=== PATIENT | female | born 1970 | race Hispanic/Latino ===

== ENCOUNTER 2020-03-15 02:38 | Emergency (ER) | payer SELFPAY ==
[2020-03-15] MEDS ORDERED: DIPHENHYDRAMINE 50 MG/ML VIAL ONE (03:22)
[2020-03-15] MEDS ORDERED: METHYLPREDNISOLONE 125 MG INJ ONE (03:22)
[2020-03-15] MEDS ORDERED: FAMOTIDINE 20 MG TAB ONE (03:23)
--- NOTE | 2020-03-15 04:23 | ER ---
Nurse's Notes [facility] Name: Leonila Velarde Age: 49 yrs Sex: Female : 1970 Arrival Date: 03/15/2020 Time: 02:43 Bed 4 Private MD: Diagnosis: Other and unspecified allergy Presentation: 03/15 02:58 Chief complaint: Patient states: i woke up with swelling in my left side of upper lip. mg2 feels like tingling and burning inside. Coronavirus screen: Client denies travel out of the [place] in the last 14 days. At this time, the client does not indicate any symptoms associated with coronavirus-19. Ebola Screen: No symptoms or risks identified at this time. Initial Sepsis Screen: Does the patient meet any 2 criteria? No. Patient's initial sepsis screen is negative. Does the patient have a suspected source of infection? No. Patient's initial sepsis screen is negative. Risk Assessment: Do you want to hurt yourself or someone else? Patient reports no desire to harm self or others. Onset of symptoms was March 15, 2020 at 01:30. 02:58 Method Of Arrival: Ambulatory mg2 02:58 Acuity: KYLER 4 mg2 Triage Assessment: 03:00 General: Appears in no apparent distress. comfortable, Behavior is calm, cooperative. mg2 Pain: Denies pain. EENT: No signs and/or symptoms were reported regarding the EENT system. Neuro: Level of Consciousness is awake, alert, obeys commands, Oriented to person, place, time, situation. Cardiovascular: No deficits noted. Respiratory: Airway is patent Respiratory effort is even, unlabored, Respiratory pattern is regular, symmetrical. GI: No signs and/or symptoms were reported involving the gastrointestinal system. : No signs and/or symptoms were reported regarding the genitourinary system. Derm: Skin is intact, is healthy with good turgor, Skin is pink, warm \T\ dry. normal. Derm: swelling noted in the left side of the upper lip. Musculoskeletal: Circulation, motion, and sensation intact. Capillary refill < 3 seconds. 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 - Social history:: Smoking status: Patient denies any tobacco usage or history of. Patient/guardian denies using alcohol, street drugs, IV drugs, Patient/guardian denies using The patient lives with family. - Family history:: not pertinent. Screenin:02 Abuse screen: Denies threats or abuse. Denies injuries from another. Nutritional mg2 screening: No deficits noted. Tuberculosis screening: No symptoms or risk factors identified. Fall Risk None identified. Assessment: 03:02 General: see triage note. mg2 04:13 Reassessment: Patient appears in no apparent distress at this time. Patient and/or mg2 family updated on plan of care and expected duration. Pain level reassessed. Patient is alert, oriented x 3, equal unlabored respirations, skin warm/dry/pink. 04:21 Reassessment: Patient states feeling better. Patient states symptoms have improved. mg2 Vital Signs: 02:58 BP 141 / 61; Pulse 103; Resp 18; Temp 98.6; Pulse Ox 100% on R/A; Weight 113.4 kg; mg2 Height 5 ft. 5 in. (165.10 cm); 04:21 BP 140 / 80; Pulse 98; Resp 18; Temp 98; Pulse Ox 100% on R/A; mg2 02:58 Body Mass Index 41.60 (113.40 kg, 165.10 cm) mg2 ED Course: 02:43 Patient arrived in ED. cl3 02:58 Willie Paulino, SUKI is Primary Nurse. mg2 02:59 Triage completed. mg2 03:02 Arm band placed on. mg2 03:03 Patient has correct armband on for positive identification. mg2 03:03 No provider procedures requiring assistance completed. mg2 03:05 Beltran Briones MD is Attending Physician. ma2 04:21 Patient did not have IV access during this emergency room visit. mg2 Administered Medications: 03:14 Drug: Pepcid 20 mg Route: PO; mg2 04:20 Follow up: Response: No adverse reaction; Marked relief of symptoms mg2 03:15 Drug: Benadryl 50 mg Route: IM; Site: left ventrogluteal; mg2 04:20 Follow up: Response: No adverse reaction; Marked relief of symptoms mg2 03:15 Drug: MethylPREDNISolone Sodium Succinate 125 mg Route: IM; Site: right ventrogluteal; mg2 04:20 Follow up: Response: No adverse reaction; Marked relief of symptoms mg2 Outcome: 04:13 Discharge ordered by . [email or web address] 04:21 Discharged to home ambulatory. mg2 04:21 Condition: stable 04:21 Discharge instructions given to patient, Instructed on discharge instructions, follow up and referral plans. medication usage, Demonstrated understanding of instructions, follow-up care, medications, Prescriptions given X 3. 04:21 Patient left the ED. mg2 Signatures: Beltran Briones MD MD ma2 Willie Paulino RN RN mg2 Marc Velasquez cl3 Corrections: (The following items were deleted from the chart) 03:02 02:58 Chief complaint: Patient states: i woke up with swelling in my left lip. feels mg2 like tingling and burning inside. mg2
--- NOTE | 2020-03-15 04:23 | EDPHYS ---
Physician Documentation [facility] Name: Leonila Velarde Age: 49 yrs Sex: Female : 1970 Arrival Date: 03/15/2020 Time: 02:43 Bed 4 Private MD: ED Physician Beltran Briones HPI: 03/15 03:17 This 49 yrs old Female presents to ER via Ambulatory with complaints of Lips ma2 Swelling. 03:17 The problem is located in the mouth. Onset: The symptoms/episode began/occurred ma2 gradually, 3 hour(s) ago. Associated signs and symptoms: Pertinent negatives: dysphagia, fever, nausea, swelling. Severity of symptoms: At their worst the symptoms were mild, in the emergency department the symptoms are unchanged. The patient has not experienced similar symptoms in the past. 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 - Social history:: Smoking status: Patient denies any tobacco usage or history of. Patient/guardian denies using alcohol, street drugs, IV drugs, Patient/guardian denies using The patient lives with family. - Family history:: not pertinent. ROS: 03:17 Constitutional: Negative for fever, chills, and weight loss, Eyes: Negative for injury, ma2 pain, redness, and discharge, ENT: Negative for injury, pain, and discharge, Neck: Negative for injury, pain, and swelling, Cardiovascular: Negative for chest pain, palpitations, and edema, Respiratory: Negative for shortness of breath, cough, wheezing, and pleuritic chest pain, Abdomen/GI: Negative for abdominal pain, nausea, diarrhea, and constipation, MS/Extremity: Negative for injury and deformity, Skin: Negative for injury, rash, and discoloration, Neuro: Negative for headache, weakness, numbness, tingling, and seizure, Psych: Negative for depression, anxiety, suicide ideation, homicidal ideation, and hallucinations, Allergy/Immunology: Negative for hives, rash, and allergies, Endocrine: Negative for neck swelling, polydipsia, polyuria, polyphagia, and marked weight changes. 03:17 ENT: Negative for injury, pain, and discharge. ma2 03:17 Constitutional: Negative for fever, chills, and weight loss. Exam: 03:17 Constitutional: This is a well developed, well nourished patient who is awake, alert, ma2 and in no acute distress. Head/Face: Normocephalic, atraumatic. Eyes: Pupils equal round and reactive to light, extra-ocular motions intact. Lids and lashes normal. Conjunctiva and sclera are non-icteric and not injected. Cornea within normal limits. Periorbital areas with no swelling, redness, or edema. ENT: Nares patent. No nasal discharge, no septal abnormalities noted. Tympanic membranes are normal and external auditory canals are clear. Oropharynx with no redness, swelling, or masses, exudates, or evidence of obstruction, uvula midline. Mucous membranes moist. Neck: Trachea midline, no thyromegaly or masses palpated, and no cervical lymphadenopathy. Supple, full range of motion without nuchal rigidity, or vertebral point tenderness. No Meningismus. Chest/axilla: Normal chest wall appearance and motion. Nontender with no deformity. No lesions are appreciated. Cardiovascular: Regular rate and rhythm with a normal S1 and S2. No gallops, murmurs, or rubs. Normal PMI, no JVD. No pulse deficits. Respiratory: Lungs have equal breath sounds bilaterally, clear to auscultation and percussion. No rales, rhonchi or wheezes noted. No increased work of breathing, no retractions or nasal flaring. Abdomen/GI: Soft, non-tender, with normal bowel sounds. No distension or tympany. No guarding or rebound. No evidence of tenderness throughout. Back: No spinal tenderness. No costovertebral tenderness. Full range of motion. MS/ Extremity: Pulses equal, no cyanosis. Neurovascular intact. Full, normal range of motion. Neuro: Awake and alert, GCS 15, oriented to person, place, time, and situation. Cranial nerves II-XII grossly intact. Motor strength 5/5 in all extremities. Sensory grossly intact. Cerebellar exam normal. Normal gait. 03:20 ENT: painless left upper lip swelling, mild, tongue and oropharynx are wnl, no edema ma2 or swelling, no abscess or fluctuence, no signs of cellulitis, no erythema, no stridor, , Nares patent. No nasal discharge, no septal abnormalities noted. Tympanic membranes are normal and external auditory canals are clear. Oropharynx with no redness, swelling, or masses, exudates, or evidence of obstruction, uvula midline. Mucous membranes moist. Vital Signs: 02:58 BP 141 / 61; Pulse 103; Resp 18; Temp 98.6; Pulse Ox 100% on R/A; Weight 113.4 kg; mg2 Height 5 ft. 5 in. (165.10 cm); 04:21 BP 140 / 80; Pulse 98; Resp 18; Temp 98; Pulse Ox 100% on R/A; mg2 02:58 Body Mass Index 41.60 (113.40 kg, 165.10 cm) mg2 MDM: 03:05 Patient medically screened. ma2 03:20 Differential diagnosis: dental caries, gingivitis, aphthous ulcers, allergic reaction. ma2 04:12 Data reviewed: vital signs, nurses notes. Counseling: I had a detailed discussion with ma2 the patient and/or guardian regarding: the historical points, exam findings, and any diagnostic results supporting the discharge/admit diagnosis, the presence of at least one elevated blood pressure reading (>120/80) during this emergency department visit, the need for outpatient follow up. Response to treatment: the patient's symptoms have markedly improved after treatment. ED course: swelling improved . Administered Medications: 03:14 Drug: Pepcid 20 mg Route: PO; mg2 04:20 Follow up: Response: No adverse reaction; Marked relief of symptoms mg2 03:15 Drug: Benadryl 50 mg Route: IM; Site: left ventrogluteal; mg2 04:20 Follow up: Response: No adverse reaction; Marked relief of symptoms mg2 03:15 Drug: MethylPREDNISolone Sodium Succinate 125 mg Route: IM; Site: right ventrogluteal; mg2 04:20 Follow up: Response: No adverse reaction; Marked relief of symptoms mg2 Disposition: 0220 04:13 Discharged to Home. Impression: Other and unspecified allergy. - Condition is Stable. - Discharge Instructions: Allergies, [id number]. - Prescriptions for Benadryl 25 mg Oral Capsule - take 1 capsule by ORAL route every 6 hours As needed; 30 tablet. Medrol ([place]) 4 mg Oral Tablets, Dose Pack - take 1 tablet by ORAL route as directed - follow package instructions; 1 packet. Pepcid 20 mg Oral Tablet - take 1 tablet by ORAL route once daily for 10 days; 10 tablet. - Medication Reconciliation Form, Thank You Letter, Antibiotic Education, Prescription Opioid Use form. - Follow up: Private Physician; When: Tomorrow; Reason: If symptoms return, Continuance of care. Signatures: Beltran Briones MD MD ma2 Willie Paulino RN RN mg2 Corrections: (The following items were deleted from the chart) 03:20 03:17 Constitutional: Negative for fever, chills, and weight loss, Eyes: Negative for ma2 injury, pain, redness, and discharge, ENT: painless left upper lip swelling, mild, tongue and oropharynx are wnl, no edema or swelling, no abscess or fluctuence, no signs of cellulitis, no erythema, no stridor, Negative for injury, pain, and discharge, Neck: Negative for injury, pain, and swelling, Cardiovascular: Negative for chest pain, palpitations, and edema, Respiratory: Negative for shortness of breath, cough, wheezing, and pleuritic chest pain, Abdomen/GI: Negative for abdominal pain, nausea, diarrhea, and constipation, MS/Extremity: Negative for injury and deformity, Skin: Negative for injury, rash, and discoloration, Neuro: Negative for headache, weakness, numbness, tingling, and seizure, Psych: Negative for depression, anxiety, suicide ideation, homicidal ideation, and hallucinations, Allergy/Immunology: Negative for hives, rash, and allergies, Endocrine: Negative for neck swelling, polydipsia, polyuria, polyphagia, and marked weight changes, ma2 04:21 04:13 03/15/2020 04:13 Discharged to Home. Impression: Other and unspecified allergy. mg2 Condition is Stable. Prescriptions for Benadryl 25 mg Oral Capsule - take 1 capsule by ORAL route every 6 hours As needed; 30 tablet, Medrol ([place]) 4 mg Oral Tablets, Dose Pack - take 1 tablet by ORAL route as directed - follow package instructions; 1 packet, Pepcid 20 mg Oral Tablet - take 1 tablet by ORAL route once daily for 10 days; 10 tablet. and Forms are Medication Reconciliation Form, Thank You Letter, Antibiotic Education, Prescription Opioid Use. Follow up: Private Physician; When: Tomorrow; Reason: If symptoms return, Continuance of care. ma2
== END 2020-03-15 04:21 | disposition home or self-care (01) ==
LOC: ER 02:38
DX: R22.9 Localized swelling, mass and lump, unspecified (principal); Z91.09 Other allergy status, other than to drugs and biological substances; I10 Essential (primary) hypertension; E11.9 Type 2 diabetes mellitus without complications; E07.9 Disorder of thyroid, unspecified; Z88.6 Allergy status to analgesic agent
CPT/HCPCS: 96372; 99283; J1200; J2930

== ENCOUNTER 2023-03-19 13:56 | Emergency (ER) | payer OTHER ==
[2023-03-19] MEDS ORDERED: MECLIZINE HCL 12.5 MG TAB ONE (15:03)
[2023-03-19 15:04] LABS: Absolute Lymphocytes (CBC) 1.5 K/uL (0.7-4.9); Hematocrit 44.3 % (36.0-45.0); Lymphocytes % 17.5 % (15.3-44.8); MCV 80.2 fL (80-100); MPV 8.8 fL (7.6-11.3); Platelets 203 thou/uL (152-406); RBC Red Blood Cell Count 5.53 M/uL (3.86-4.86)
[2023-03-19 15:29] LABS: ALT/SGPT 41 U/L (13-56); AST/SGOT 28 U/L (15-37); Albumin 3.5 g/dL (3.4-5.0); Alkaline Phosphatase 159 U/L (45-117); BUN Blood Urea Nitrogen 11 mg/dL (7-18); Bicarbonate 27 mEq/L (21-32); Bilirubin Total 0.4 mg/dL (0.2-1.0); Glomerular Filtration Rate 93 ml/min (=/>90); Glucose Level 185 mg/dL (74-106); Magnesium 2.2 mg/dL (1.6-2.4); Potassium 3.9 mEq/L (3.5-5.1); Protein, Total 8.3 g/dL (6.4-8.2); Sodium Level 135 mEq/L (136-145); Thyroid Stimulating Hormone 0.052 uIU/mL (0.358-3.740); Troponin High Sensitivity 11.7 pg/mL (<58.9)
[2023-03-19 15:31] LABS: Bilirubin Direct < 0.1 mg/dL (0-0.2); Bilirubin Indirect, Calculated ND mg/dL (0.2-0.8)
--- NOTE | 2023-03-19 15:55 | EDPHYS ---
Physician Documentation [facility] Name: Leonila Velarde Age: 52 yrs Sex: Female : 1970 Arrival Date: 03/19/2023 Time: 13:56 Bed 17 Private MD: ED Physician Donta Bundy HPI: 03/19 17:26 This 52 yrs old Female presents to ER via Ambulatory with complaints of rt Dizziness, Nausea. 17:26 Patient presents to the ED with intermittent dizziness described as room spinning as rt well as nausea. That started this morning. It is worse when she sits up or turns her head. Denies loss of consciousness, denies abdominal pain, denies other acute complaints. She states that the symptoms are improved when she keeps her head still, worsened with movement. Symptoms are moderate in severity, no other aggravating or elevating factors.. Historical: - Allergies: 14:05 Aspirin; db 14:05 Lisinopril; db 14:05 Pepto-Bismol; db - Home Meds: 14:05 metformin 500 mg Oral tablet four times a day [Active]; Synthroid Oral [Active]; db - PMHx: 14:05 Diabetes - NIDDM; Hypertension; Thyroid problem; db - Immunization history:: Adult Immunizations unknown. - Social history:: Smoking status: Patient denies any tobacco usage or history of. ROS: 17:26 Constitutional: Negative for fever, chills, and weight loss, Cardiovascular: Negative rt for chest pain, palpitations, and edema, Respiratory: Negative for shortness of breath, cough, wheezing, and pleuritic chest pain, MS/Extremity: Negative for injury and deformity, Skin: Negative for injury, rash, and discoloration, Psych: Negative for depression, anxiety, suicide ideation, homicidal ideation, and hallucinations, 17:26 Abdomen/GI: Positive for nausea, Negative for abdominal pain, 17:26 Neuro: Positive for dizziness, Negative for syncope, Exam: 17:26 Constitutional: This is a well developed, well nourished patient who is awake, alert, rt and in no acute distress. Head/Face: Normocephalic, atraumatic. Chest/axilla: Normal chest wall appearance and motion. Nontender with no deformity. No lesions are appreciated. Cardiovascular: Regular rate and rhythm with a normal S1 and S2. No gallops, murmurs, or rubs. Normal PMI, no JVD. No pulse deficits. Respiratory: Lungs have equal breath sounds bilaterally, clear to auscultation and percussion. No rales, rhonchi or wheezes noted. No increased work of breathing, no retractions or nasal flaring. Abdomen/GI: Soft, non-tender, with normal bowel sounds. No distension or tympany. No guarding or rebound. No evidence of tenderness throughout. Skin: Warm, dry with normal turgor. Normal color with no rashes, no lesions, and no evidence of cellulitis. MS/ Extremity: Pulses equal, no cyanosis. Neurovascular intact. Full, normal range of motion. Psych: Awake, alert, with orientation to person, place and time. Behavior, mood, and affect are within normal limits. 17:26 Eyes: No visual field deficits, extraocular muscles intact, conjunctiva normal, 2-3 beats of right going nystagmus, head impulse and test of skew negative. 17:26 ECG was reviewed by the Attending Physician. 17:26 Neuro: Speech normal, no cranial nerve deficits, strength and sensation intact in upper and lower extremities, gait normal, Vital Signs: 14:03 BP 154 / 89; Pulse 73; Resp 16; Temp 98.7(O); Pulse Ox 99% ; Weight 104.33 kg; Height 5 db ft. 5 in. ; 15:00 BP 174 / 83; Pulse 79; Resp 16; Pulse Ox 96% on R/A; eh3 15:30 BP 143 / 76; Pulse 73; eh3 16:00 BP 136 / 78; Pulse 75; Resp 16; Pulse Ox 97% on R/A; eh3 14:03 Body Mass Index 38.27 (104.33 kg, 165.1 cm) db MDM: 14:18 Patient medically screened. rt 17:26 Differential diagnosis: Vertigo, peripheral, versus central. Data reviewed: vital rt signs, nurses notes, lab test result(s), EKG. Consideration of Admission/Observation Escalation of care including admission/observation considered. HI NTS exam is consistent with peripheral vertigo, symptoms resolved with meclizine, low suspicion for central vertigo, does not require CT scan or further workup for stroke.. I considered the following discharge prescriptions or medication management in the emergency department Medications were administered in the Emergency Department. See MAR. Care significantly affected by the following chronic conditions: Diabetes. Counseling: I had a detailed discussion with the patient and/or guardian regarding the historical points, exam findings, and any diagnostic results supporting the discharge/admit diagnosis, lab results, the need for outpatient follow up, to return to the emergency department if symptoms worsen or persist or if there are any questions or concerns that arise at home. Response to treatment: the patient's symptoms have resolved after treatment. 03/19 14:57 Order name: Basic Metabolic Panel; Complete Time: 15:36 EDMS 03/19 14:57 Order name: Liver (Hepatic) Function; Complete Time: 15:36 EDMS 03/19 14:57 Order name: Troponin High Sensitivity; Complete Time: 15:36 EDMS 03/19 14:57 Order name: Magnesium; Complete Time: 15:36 EDMS 03/19 14:57 Order name: Thyroid Stimulating Hormone; Complete Time: 15:36 EDMS 03/19 14:57 Order name: CBC with Automated Diff; Complete Time: 15:36 EDMS 03/19 14:32 Order name: EKG; Complete Time: 14:54 rt 03/19 14:32 Order name: Cardiac monitoring; Complete Time: 14:40 rt 03/19 14:32 Order name: EKG - Nurse/Tech; Complete Time: 14:40 rt 03/19 14:32 Order name: IV Saline Lock; Complete Time: 14:55 rt 03/19 14:32 Order name: Labs collected and sent; Complete Time: 14:55 rt 03/19 14:32 Order name: O2 Per Protocol; Complete Time: 14:40 rt 03/19 14:32 Order name: O2 Sat Monitoring; Complete Time: 14:40 rt EC:26 Rate is 76 beats/min. Rhythm is regular, Normal Sinus Rhythm with No ectopy, lafb. Left rt axis deviation noted. OH interval is normal. QRS interval is normal. QT interval is normal. No Q waves. T waves are Normal. No ST changes noted. Interpreted by me. Administered Medications: 14:45 Drug: Meclizine PO 50 mg PO once Route: PO; eh3 15:31 Follow up: Response: No adverse reaction; Marked relief of symptoms eh3 Disposition Summary: 03/19/23 15:54 Discharge Ordered Notes: Location: Home rt Problem: new rt Symptoms: are resolved rt Condition: Stable rt Diagnosis - Benign paroxysmal vertigo, unspecified ear rt Followup: rt - With: Private Physician - When: 5 - 6 days - Reason: Discharge Instructions: - Discharge Summary Sheet rt - Benign Positional Vertigo rt Forms: - Medication Reconciliation Form rt - Thank You Letter rt - Antibiotic Education rt - Prescription Opioid Use rt - Patient Portal Instructions rt - Leadership Thank You Letter rt Prescriptions: - Meclizine 25 mg Oral Tablet - take 1 tablet ORAL route every 8 hours As needed; 30 tablet; Refills: 0, rt Product Selection Permitted Signatures: Dispatcher [employer] Paula Leon RN RN eh3 Sarah Simmons RN RN db Donta Bundy MD MD rt
--- NOTE | 2023-03-19 15:55 | ER ---
Nurse's Notes [facility] Name: Leonila Velarde Age: 52 yrs Sex: Female : 1970 Arrival Date: 03/19/2023 Time: 13:56 Bed 17 Private MD: Diagnosis: Benign paroxysmal vertigo, unspecified ear Presentation: 03/19 14:03 Chief complaint: Patient states: STATES IS FEELING DIZZY AND HAS NAUSEA THAT STARTED AT db 0400 TODAY. Coronavirus screen: Vaccine status: Patient reports being unvaccinated. Client denies travel out of the [place] in the last 14 days. At this time, the client does not indicate any symptoms associated with coronavirus-19. Ebola Screen: Patient negative for fever greater than or equal to 101.5 degrees Fahrenheit, and additional compatible Ebola Virus Disease symptoms Patient denies exposure to infectious person. Patient denies travel to an Ebola-affected area in the 21 days before illness onset. No symptoms or risks identified at this time. Initial Sepsis Screen: Does the patient meet any 2 criteria? No. Patient's initial sepsis screen is negative. Does the patient have a suspected source of infection? No. Patient's initial sepsis screen is negative. Risk Assessment: Do you want to hurt yourself or someone else? Patient reports no desire to harm self or others. Onset of symptoms was March 19, 2023. 14:03 Method Of Arrival: Ambulatory db 14:03 Acuity: KYLER 2 db Triage Assessment: 14:05 General: Appears in no apparent distress. uncomfortable, Behavior is calm, cooperative. db Pain:. Pain: Denies pain. Neuro: Level of Consciousness is awake, alert, obeys commands, Oriented to person, place, time, situation. GI: Reports nausea. Historical: - Allergies: 14:05 Aspirin; db 14:05 Lisinopril; db 14:05 Pepto-Bismol; db - Home Meds: 14:05 metformin 500 mg Oral tablet four times a day [Active]; Synthroid Oral [Active]; db - PMHx: 14:05 Diabetes - NIDDM; Hypertension; Thyroid problem; db - Immunization history:: Adult Immunizations unknown. - Social history:: Smoking status: Patient denies any tobacco usage or history of. Screenin:10 [facility] ED Fall Risk Assessment (Adult) Score/Fall Risk Level 0 - 2 = Low Risk. Abuse eh3 screen: Denies threats or abuse. Denies injuries from another. Nutritional screening: No deficits noted. Tuberculosis screening: No symptoms or risk factors identified. Assessment: 14:10 General: Appears in no apparent distress. uncomfortable, Behavior is calm, cooperative, eh3 appropriate for age. Pain: Denies pain. Neuro: Level of Consciousness is awake, alert, obeys commands, Oriented to person, place, time, situation, Pillowcase Turner are equal bilaterally Moves all extremities. Gait is steady, Speech is normal, Facial symmetry appears normal, Pupils are PERRLA, Intact Reports dizziness. Cardiovascular: Capillary refill < 3 seconds Patient's skin is warm and dry. Respiratory: Airway is patent Respiratory effort is even, unlabored, Respiratory pattern is regular, symmetrical. GI: Abdomen is round non-distended, Reports nausea. Derm: Skin is pink, warm \T\ dry. Musculoskeletal: Circulation, motion, and sensation intact. 15:00 Reassessment: Patient appears in no apparent distress at this time. Patient and/or eh3 family updated on plan of care and expected duration. Pain level reassessed. Patient is alert, oriented x 3, equal unlabored respirations, skin warm/dry/pink. 16:00 Reassessment: Patient appears in no apparent distress at this time. Patient and/or eh3 family updated on plan of care and expected duration. Pain level reassessed. Patient is alert, oriented x 3, equal unlabored respirations, skin warm/dry/pink. Vital Signs: 14:03 BP 154 / 89; Pulse 73; Resp 16; Temp 98.7(O); Pulse Ox 99% ; Weight 104.33 kg; Height 5 db ft. 5 in. ; 15:00 BP 174 / 83; Pulse 79; Resp 16; Pulse Ox 96% on R/A; eh3 15:30 BP 143 / 76; Pulse 73; eh3 16:00 BP 136 / 78; Pulse 75; Resp 16; Pulse Ox 97% on R/A; eh3 14:03 Body Mass Index 38.27 (104.33 kg, 165.1 cm) db ED Course: 13:58 Patient arrived in ED. rg4 13:59 Donta Bundy MD is Attending Physician. rt 14:04 Triage completed. db 14:07 Arm band placed on left wrist. db 14:10 Patient has correct armband on for positive identification. Bed in low position. Call eh3 light in reach. Side rails up X2. Provided Education on: use of call cardenas. Pulse ox on. NIBP on. 14:16 Paula Stevenson, RN is Primary Nurse. eh3 16:11 No provider procedures requiring assistance completed. IV discontinued, intact, eh3 bleeding controlled, No redness/swelling at site. Pressure dressing applied. Administered Medications: 14:45 Drug: Meclizine PO 50 mg PO once Route: PO; eh3 15:31 Follow up: Response: No adverse reaction; Marked relief of symptoms eh3 Medication: 16:12 VIS not applicable for this client. eh3 Outcome: 15:54 Discharge ordered by . rt 16:18 Discharged to home ambulatory, with significant other, eh3 16:18 Condition: stable 16:18 Discharge instructions given to patient, Instructed on discharge instructions, follow up and referral plans. medication usage, Demonstrated understanding of instructions, follow-up care, medications, Prescriptions given X 1, 16:18 Patient left the ED. eh3 Signatures: Rosaura Frederick rg4 Paula Steevnson, RN RN eh3 Sarah Simmons, RN RN Donta Keating MD MD rt
[2023-03-19 18:50] VITALS: TEMP 98.7
[2023-03-19 18:53] VITALS: BP 136/78; O2SAT 97
== END 2023-03-19 16:18 | disposition home or self-care (01) ==
LOC: ER 13:56
DX: H81.10 Benign paroxysmal vertigo, unspecified ear (principal); Z88.6 Allergy status to analgesic agent; Z88.8 Allergy status to other drugs, medicaments and biological substances
CPT/HCPCS: 93005; 85025; 80048; 36415; 83735; 80076; 84443; 84484; 99284; J8597

== ENCOUNTER → 2023-04-08 | Emergency (ER) | payer OTHER ==
--- NOTE | 2023-04-08 19:50 | RAD REPORT ---
EXAM DESCRIPTION: RAD - Ankle Right 3 View - 04/08/2023 7:34 pm CLINICAL HISTORY: PAIN COMPARISON: No comparisons FINDINGS/IMPRESSION: No acute fracture. No malalignment. Plantar aspect and dorsal aspect calcaneal spurs.
--- NOTE | 2023-04-08 19:52 | RAD REPORT ---
EXAM DESCRIPTION: RAD - Foot Right 3 View - 04/08/2023 7:33 pm CLINICAL HISTORY: PAIN COMPARISON: Ankle Right 3 View dated 04/08/2023 FINDINGS/IMPRESSION: Possible avulsion fractures at the lateral aspect of the cuboid and calcaneus a s seen on the AP view. The findings are not seen on the oblique view. Correlate with site of pain. No other fractures identified.
--- NOTE | 2023-04-08 19:57 | ER ---
Nurse's Notes [facility] Name: Leonila Velarde Age: 52 yrs Sex: Female : 1970 Arrival Date: 04/08/2023 Time: 18:17 Bed Treatment Private MD: Diagnosis: Nondisplaced fracture of cuboid bone of right foot, initial encounter for closed fracture Presentation: 04/08 18:42 Chief complaint: Patient states: Fell down 3 steps 8 days ago. R ankle pain, B arm ll1 bruises, pain to both thighs and vaginal area, CP since. X-rays negative that day, chest hurts so she cant use her crutches. Coronavirus screen: Client denies travel out of the [place] in the last 14 days. At this time, the client does not indicate any symptoms associated with coronavirus-19. Ebola Screen: Patient denies travel to an Ebola-affected area in the 21 days before illness onset. Initial Sepsis Screen: Does the patient meet any 2 criteria? No. Patient's initial sepsis screen is negative. Does the patient have a suspected source of infection? Yes: Bone or joint infection. Risk Assessment: Do you want to hurt yourself or someone else? Patient reports no desire to harm self or others. Onset of symptoms was March 31, 2023. 18:42 Method Of Arrival: Ambulatory ll1 18:42 Acuity: KYLER 3 ll1 19:37 Care prior to arrival: None. Mechanism of Injury: Fall down 3 steps. rv Triage Assessment: 18:45 General: Appears uncomfortable, Behavior is calm, cooperative, appropriate for age. ll1 Pain: Complains of pain in R ankle Quality of pain is described as burning, aching. Musculoskeletal: Circulation, motion, and sensation intact. Capillary refill < 3 seconds, Reports pain in R ankle. Injury Description: Bruise. Trauma Activation: Not Applicable Physician: ED Physician; Name: ; Notified At: ; Arrived At: Physician: General Surgeon; Name: ; Notified At: ; Arrived At: Physician: Radiology; Name: ; Notified At: ; Arrived At: Physician: Respiratory; Name: ; Notified At: ; Arrived At: Physician: Lab; Name: ; Notified At: ; Arrived At: Historical: - Allergies: 18:38 Aspirin; ll1 18:38 Lisinopril; ll1 18:38 Pepto-Bismol; ll1 - PMHx: 18:38 Diabetes - NIDDM; Thyroid problem; ll1 - PSHx: 18:52 Cholecystectomy; ll1 - Immunization history:: Adult Immunizations up to date. - Social history:: Smoking status: Patient denies any tobacco usage or history of. - Immunization history: Last tetanus immunization: - up to date. Screenin:35 Abuse screen: Denies threats or abuse. Denies injuries from another. Tuberculosis rv screening: No symptoms or risk factors identified. 19:36 [facility] ED Fall Risk Assessment (Adult) History of falling in the last 3 months, rv including since admission Yes- single mechanical fall (1 pt) Score/Fall Risk Level 3 or more points = High Risk Oriented to surroundings, Maintained a safe environment, Educated pt \T\ family on fall prevention, incl call for assistance when getting out of bed, Assessed \T\ reinforced patient's understanding of fall precautions. Nutritional screening: No deficits noted. Primary Survey: 19:35 NO uncontrolled hemorrhage observed. A: The client is alert. Breathing/Chest: rv Spontaneous respiratory effort, equal unlabored respirations, breath sounds clear bilaterally, regular pattern, symmetrical chest rise and fall. Breathing/Chest: Respiratory effort: spontaneous, Breath sounds: clear, bilaterally. Circulation: No external hemorrhage present. Regular and strong central pulse, skin warm/dry/normal color. Disability Pupils are equal, round, reactive to light and accommodation. Client is alert. Exposure/Environment: A warming method has been applied: A warm blanket has been provided to the patient. 19:38 Reassessment Breathing: Spontaneous respiratory effort, equal unlabored respirations, rv breath sounds clear bilaterally, regular pattern with symmetrical chest rise and fall. Respiratory effort Spontaneous Circulation: No external hemorrhage noted. Regular and strong central pulse, skin warm/dry/normal color. Disability: Pupils Pupils are equal, round, reactive to light and accomodation. Alert. Secondary Survey: 19:35 HEENT: No deficits noted. Gastrointestinal: No deficits noted. : No deficits noted. rv Musculoskeletal: pain on the shoulder, an arms and legs. Assessment: 19:30 General: Appears uncomfortable, Behavior is calm, cooperative. Pain: Complains of pain ha1 in right ankle Pain currently is 7 out of 10 on a pain scale. Quality of pain is described as burning, Aggravated by increased activity. Neuro: Level of Consciousness is awake, alert, obeys commands. Cardiovascular: Patient's skin is warm and dry. Respiratory: Airway is patent Respiratory effort is even, unlabored, Respiratory pattern is regular, symmetrical. GI: Abdomen is round non-distended. Derm: Skin is pink, warm \T\ dry. Musculoskeletal: Circulation, motion, and sensation intact. 19:55 Reassessment: Patient and/or family updated on plan of care and expected duration. Pain ha1 level reassessed. Patient is alert, oriented x 3, equal unlabored respirations, skin warm/dry/pink. Vital Signs: 18:42 BP 169 / 75; Pulse 83; Resp 18; Temp 98.4; Pulse Ox 98% ; ll1 19:55 BP 158 / 68; Pulse 80; Resp 16 S; Pulse Ox 97% on R/A; ha1 20:17 BP 148 / 78; Pulse 71; Resp 17; Temp 98; Pulse Ox 99% ; rv Ramila Coma Score: 19:35 Eye Response: spontaneous(4). Motor Response: obeys commands(6). Verbal Response: rv oriented(5). Total: 15. Trauma Score (Adult): 19:35 Eye Response: spontaneous(1); Verbal Response: oriented(1); Motor Response: obeys rv commands(2); Systolic BP: > 89 mm Hg(4); Respiratory Rate: 10 to 29 per min(4); [place] Score: 15; Trauma Score: 12 ED Course: 18:19 Patient arrived in ED. mr 18:20 Baldo Brooks MD is Attending Physician. ec2 18:37 Arm band placed on. ll1 18:45 Triage completed. ll1 19:35 Foot Right 3 View XRAY In Process Unspecified. EDMS 19:35 Ankle Right 3 View XRAY In Process Unspecified. EDMS 19:35 Patient has correct armband on for positive identification. rv 19:35 Patient maintains SpO2 saturation greater than 95% on room air. rv 19:36 Client placed on continuous cardiac and pulse oximetry monitoring. NIBP monitoring rv applied. 19:37 Thermoregulation: warm blanket given to patient. rv 19:38 No provider procedures requiring assistance completed. rv 19:56 Stephen Carroll MD is Referral Physician. ec2 19:57 Jose, Werner, RN is Primary Nurse. rv 20:18 IV discontinued, intact, bleeding controlled, No redness/swelling at site. Pressure rv dressing applied. Administered Medications: No medications were administered Medication: 19:36 VIS not applicable for this client. rv Outcome: 19:56 Discharge ordered by . ec2 20:18 Discharged to home via wheelchair, with family, rv 20:18 Condition: good 20:18 Discharge instructions given to patient, family, Instructed on discharge instructions, follow up and referral plans. medication usage, crutch walking, Demonstrated understanding of instructions, follow-up care, medications, crutch walking, splint care, Prescriptions given X 1, 20:18 Patient left the ED. rv Signatures: Dispatcher [employer] EDRubina Soto, Reg Reg mr GarciaWerner RN RN rv Lewis, Lynsay, RN RN ll1 Nicole Craven RN RN ha1 Baldo Brooks MD MD ec2 Corrections: (The following items were deleted from the chart) 18:52 18:38 PMHx: Hypertension; ll1 ll1
--- NOTE | 2023-04-08 19:57 | EDPHYS ---
Physician Documentation [facility] Name: Leonila Velarde Age: 52 yrs Sex: Female : 1970 Arrival Date: 04/08/2023 Time: 18:17 Bed Treatment Private MD: ED Physician Baldo Brooks HPI: 04/08 18:52 This 52 yrs old Female presents to ER via Ambulatory with complaints of Fall ec2 Injury. 18:52 Patient arrives today for evaluation of right foot and ankle pain. Patient states that ec2 approximately 8 days ago she had sustained an injury to the right foot. States that she has had pain and swelling at that area. Patient reports that she initially had x-rays that were negative. Patient reports persistent swelling and discomfort, minimal alleviation in symptoms with Tylenol.. Historical: - Allergies: 18:38 Aspirin; ll1 18:38 Lisinopril; ll1 18:38 Pepto-Bismol; ll1 - PMHx: 18:38 Diabetes - NIDDM; Thyroid problem; ll1 - PSHx: 18:52 Cholecystectomy; ll1 - Immunization history:: Adult Immunizations up to date. - Social history:: Smoking status: Patient denies any tobacco usage or history of. - Immunization history: Last tetanus immunization: - up to date. ROS: 18:52 Constitutional: as per hpi ec2 Exam: 18:52 Constitutional: GEN: NAD Head: atraumatic Eyes: EOMI Ears: External ears are ec2 normal. CV: regular rate LUNGS: no respiratory distress ABD: non-distended SKIN: no evidence of rashes MSK: Right lateral malleolus with TTP, slight amount of swelling noted in that area, intact distal neurovascular status. Tenderness to palpation over the fifth metatarsal area. NEURO: moves all extremities equally Vital Signs: 18:42 BP 169 / 75; Pulse 83; Resp 18; Temp 98.4; Pulse Ox 98% ; ll1 19:55 BP 158 / 68; Pulse 80; Resp 16 S; Pulse Ox 97% on R/A; ha1 20:17 BP 148 / 78; Pulse 71; Resp 17; Temp 98; Pulse Ox 99% ; rv [place] Coma Score: 19:35 Eye Response: spontaneous(4). Motor Response: obeys commands(6). Verbal Response: rv oriented(5). Total: 15. Trauma Score (Adult): 19:35 Eye Response: spontaneous(1); Verbal Response: oriented(1); Motor Response: obeys rv commands(2); Systolic BP: > 89 mm Hg(4); Respiratory Rate: 10 to 29 per min(4); Ramila Score: 15; Trauma Score: 12 MDM: 18:43 Patient medically screened. ec2 18:52 Data reviewed: vital signs, nurses notes. ED course: Patient arrives today for ec2 evaluation of right foot and ankle pain. Examination remarkable for MSK findings as noted above. Will obtain radiographs of the ankle and foot, currently considering ankle sprain, bony fracture.. 19:55 ED course: Radiology with possible avulsion fractures of the cuboid and calcaneus, ec2 patient does have TTP to the cuboid area. Will place patient in a short leg splint with stirrups and have her follow-up with orthopedic surgery. Will prescribe her pain medication as well. . 04/08 18:52 Order name: Foot Right 3 View XRAY; Complete Time: 19:53 ec2 04/08 18:52 Order name: Ankle Right 3 View XRAY; Complete Time: 19:53 ec2 04/08 19:55 Order name: Splint Leg: Short Leg; Complete Time: 20:17 ec2 04/08 19:55 Order name: Splint; Complete Time: 20:17 ec2 Administered Medications: No medications were administered Disposition Summary: 04/08/23 19:56 Discharge Ordered Notes: Location: Home ec2 Condition: Stable ec2 Diagnosis - Nondisplaced fracture of cuboid bone of right foot, initial encounter for closed ec2 fracture Followup: ec2 - With: Stephen Carroll MD - When: - Reason: Recheck today's complaints, Continuance of care Discharge Instructions: - Discharge Summary Sheet ec2 - Foot Pain ec2 Forms: - Medication Reconciliation Form ec2 - Thank You Letter ec2 - Antibiotic Education ec2 - Prescription Opioid Use ec2 - Patient Portal Instructions ec2 - Leadership Thank You Letter ec2 Prescriptions: - acetaminophen-codeine 300-15 mg Oral tablet - take 1 tablet ORAL route 4 times per day as needed for pain; 12 tablet; ec2 Refills: 0, Product Selection Permitted Signatures: Dispatcher [employer] EDWerner Torrez RN RN Ayden Olson RN RN ll1 Baldo Brooks MD MD ec2 Corrections: (The following items were deleted from the chart) 18:52 18:38 PMHx: Hypertension; ll1 ll1 18:53 18:52 Patient arrives today for evaluation of right foot and ankle pain.. ec2 ec2
[2023-04-09 00:53] VITALS: BP 148/78; TEMP 98; O2SAT 99
== END ==
LOC: ER 18:17
PROC: 2W3LX1Z Immobilization of Right Lower Extremity using Splint (ICD-10-PCS; principal; 2023-04-08)
DX: S92.214A Nondisplaced fracture of cuboid bone of right foot, initial encounter for closed fracture (principal)
CPT/HCPCS: 99285